=== PATIENT | female | born 1960 | race Caucasian/White ===

== ENCOUNTER 2016-10-24 17:04 | Emergency (ER) | payer SELFPAY ==
[~2016-10-24 17:04] MED LIST: LORCET PO; MOTRIN IB200 MG PO; PT DENIES MEDS; VALTREX1 GM PO; ZITH250 PO
== END 2016-10-24 17:57 | disposition home or self-care (01) ==
LOC: ER 17:04
DX: S39.012A Strain of muscle, fascia and tendon of lower back, initial encounter (principal); Z87.891 Personal history of nicotine dependence; Z79.899 Other long term (current) drug therapy; W18.30XA Fall on same level, unspecified, initial encounter
CPT/HCPCS: 72100; 96374; 96375; 96376; 99283; J1170; J2405